=== PATIENT | female | born 1975 | race Caucasian/White ===

== ENCOUNTER 2023-06-03 11:28 | Emergency (ER) | payer OTHER, SELFPAY ==
[2023-06-03 12:00] VITALS: BP 135/93; PULSE 85; RESP 22; TEMP 37; O2SAT 99; BMI 36.9
--- NOTE | 2023-06-03 12:00 | EXP.UTC ---
Discharge Plan Disposition Patient Disposition: Home, Self-Care Condition: Good Prescriptions Prescriptions: New clindamycin HCl 300 mg capsule 300 mg PO Q8H Qty: 30 0RF mupirocin 2 % ointment 1 applic topical TID 7 Days Qty: 15 0RF No Action cyclobenzaprine 10 mg tablet 10 mg PO DAILY dextroamphetamine-amphetamine 10 mg tablet 10 mg PO DAILY Patient Comments: TAKE 1 TABLET BY MOUTH EVERY DAY ROUND MIDDAY NEEDED ergocalciferol (vitamin D2) 1,250 mcg (50,000 unit) capsule 1,250 mcg PO DAILY dextroamphetamine-amphetamine 30 mg capsule,extended release 24hr 30 mg PO DAILY Patient Comments: TAKE 1 CAPSULE BY MOUTH EVERY MORNING escitalopram oxalate 20 mg tablet 20 mg PO DAILY rosuvastatin 20 mg tablet 20 mg PO HS Linzess 72 mcg capsule 72 mcg PO DAILY Referrals Follow up/Referrals: Lavern Lee DO [Primary Care Provider] - See instructions Sheri Apodaca DPM [Staff Physician] - See instructions Activity Restrictions/Add. Instructions Additional Instructions/Restrictions: Rest the extremity, Elevate the extremity as tolerated while you are resting. Take tylenol or ibuprofen for pain. Follow up with Dr. Apodaca (podiatry). I put in a referral but you need to call her office and schedule an appointment. Follow up with your regular doctor. GO TO THE ER FOR ANY WORSENING SYMPTOMS Clinical Impressions Clinical Impression: Cellulitis of fifth toe of right foot Instructions Patient Instructions: Cellulitis, Clindamycin, Mupirocin Discharge ED Provider: Adebayo Georges [facility] General Stated complaint: AO 05/31/23 Right pinky toe home accident Time Seen by Provider: 06/03/23 12:00 History of Present Illness Provider Complaint: She states that 3 days ago she stepped on a piece of glass and got a puncture wound to her right 5th toe. She thought that she got the glass out of the wound, but since then the toe has became red and mildly swollen. She is not a known diabetic. Her tetanus immunization is up to date. Related Data Home Medications Medication Instructions Recorded Confirmed cyclobenzaprine 10 mg tablet 10 mg PO DAILY 06/03/23 06/03/23 dextroamphetamine-amphetamine 10 10 mg PO DAILY 06/03/23 06/03/23 mg tablet dextroamphetamine-amphetamine ER 30 mg PO DAILY 06/03/23 06/03/23 30 mg 24hr capsule,extend release ergocalciferol (vitamin D2) 1,250 1,250 mcg PO DAILY 06/03/23 06/03/23 mcg (50,000 unit) capsule escitalopram oxalate 20 mg tablet 20 mg PO DAILY 06/03/23 06/03/23 linaclotide 72 mcg capsule 72 mcg PO DAILY 06/03/23 06/03/23 (Linzess) rosuvastatin 20 mg tablet 20 mg PO HS 06/03/23 06/03/23 Previous Rx's Medication Instructions Recorded clindamycin HCl 300 mg capsule 300 mg PO Q8H #30 caps 06/03/23 mupirocin 2 % topical ointment 1 applic topical TID 7 days #15 06/03/23 grams Allergies Allergy/AdvReac Type Severity Reaction Status Date / Time atomoxetine Allergy Verified 06/03/23 12:11 cefuroxime Allergy Verified 06/03/23 12:11 codeine Allergy Verified 06/03/23 12:11 estradiol Allergy Verified 06/03/23 12:11 Penicillins Allergy Verified 06/03/23 12:11 Sulfa (Sulfonamide Allergy Verified 06/03/23 12:11 Antibiotics) [facility] Disclaimer: The information contained in this section may have been updated after the patient was seen, as this information can be updated by other users. Medical History (Updated 06/03/23 @ 13:16 by Adebayo Georges APRN) Anxiety History of anemia History of stroke Migraine Surgical History (Updated 06/03/23 @ 12:14 by Joslyn Regalado RN) History of cholecystectomy History of hysterectomy History of tonsillectomy History of tympanostomy tube placement Social History Smoking Status: Never smoker alcohol intake: never current occupational status: employed Travel in the last 8 weeks: None ROS Obtained: Yes All syste
--- NOTE | 2023-06-03 12:09 | XR_ITS ---
PROCEDURE INFORMATION: Exam: XR Right Foot Exam date and time: 06/03/2023 12:24 PM Age: 48 years old Clinical indication: Injury or trauma; Other: Glass in 5th digit; Additional info: Glass in little toe TECHNIQUE: Imaging protocol: Radiologic exam of the right foot. Views: 3 or more views. COMPARISON: No relevant prior studies available. FINDINGS: Bones/joints: Moderate posterior and large plantar calcaneal bone spurs. Soft tissues: No radiopaque foreign body. IMPRESSION: No radiopaque foreign body.
[2023-06-03 13:17] VITALS: BP 135/93; PULSE 85; RESP 22; TEMP 37; O2SAT 99
== END 2023-06-03 13:21 | disposition home or self-care (01) ==
PROVIDERS: Emergency Provider Nurse Practitioner Family; PCP Family Medicine
DX: L03.031 Cellulitis of right toe (principal)
CPT/HCPCS: 73630; 99204; 99212; G0463

== ENCOUNTER 2023-06-24 15:51 | Emergency (ER) | payer OTHER, SELFPAY ==
[2023-06-24 17:30] VITALS: BP 131/98; PULSE 75; RESP 20; TEMP 36.8; O2SAT 99; BMI 34.4
--- NOTE | 2023-06-24 17:45 | EXP.UTC ---
Discharge Plan Disposition Patient Disposition: Home, Self-Care Condition: Good Prescriptions Prescriptions: New fluticasone propionate [Flonase Allergy Relief] 50 mcg/actuation spray,suspension 1 - 2 spray intranasal DAILY Qty: 16 0RF Rx Instructions: administer into each nostril daily azithromycin [Zithromax Z-Luke] 250 mg tablet See Rx Instructions .ROUTE .COMPLEX 5 Days Qty: 6 0RF Rx Instructions: For 250 mg dose pack: take 500 mg today (day 1), then 250 mg for 4 days (days 2-5) methylprednisolone [Medrol (Luke)] 4 mg tablets,dose pack See Rx Instructions .Route .COMPLEX 6 Days Qty: 21 0RF Rx Instructions: taper pack; No Action cyclobenzaprine 10 mg tablet 10 mg PO DAILY dextroamphetamine-amphetamine 10 mg tablet 10 mg PO DAILY Patient Comments: TAKE 1 TABLET BY MOUTH EVERY DAY ROUND MIDDAY NEEDED dextroamphetamine-amphetamine 30 mg capsule,extended release 24hr 30 mg PO DAILY Patient Comments: TAKE 1 CAPSULE BY MOUTH EVERY MORNING escitalopram oxalate 20 mg tablet 20 mg PO DAILY rosuvastatin 20 mg tablet 20 mg PO HS Linzess 72 mcg capsule 72 mcg PO DAILY Referrals Follow up/Referrals: Lavern Lee DO [Primary Care Provider] - See instructions Activity Restrictions/Add. Instructions Additional Instructions/Restrictions: *Monitor Temp, Over the counter Motrin or Tylenol as directed/as needed Tylenol every 4 hours and Motrin every 6 hours (as long as your family doctor has told you that you can take it) for fever or pain. and straight to ER if unable to lower temp less than 101.0 after medication given *Warm salt water gargles may help to soothe the throat *Throat Lozenges? *Warm fluids like tea with honey may help to soothe the throat? *Sleep elevated *Humidifier/Vaporizer *Flonase 2 sprays in each nostril daily but be aware that it may take 2-3 days before you notice improvement Take medication as prescribed Follow up IMMEDIATELY for new or worsening symptoms or no Noticeable improvement over the next 48-72 hours. 911 for difficulty breathing or swallowing Clinical Impressions Clinical Impression: Sinusitis Qualifiers: Sinusitis location: unspecified location Chronicity: unspecified Qualified Code(s): J32.9 - Chronic sinusitis, unspecified Instructions Patient Instructions: Sinusitis, DI for Sinusitis Discharge ED Provider: Enma Gray [facility] [place] General Stated complaint: headache, congestion, sore throat Mode of Arrival: Ambulatory Source of Information: Patient Limitations: No Limitations Time Seen by Provider: 06/24/23 17:46 Description of Symptoms (Recalled from Triage Doc. by RN): PATIENT C/O HEAD CONGESTION, HEADACHE, SINUS DRAINAGE, AND SORE THROAT SINCE MONDAY HEENT Symptoms (Recalled from RN notes): Yes Resp Symptoms (Recalled from RN notes): No Skin Symptoms (Recalled from RN notes): No MS Symptoms (Recalled from RN notes): No Functional Status (Recalled from RN notes): WNL History of Present Illness Provider Complaint: Patient states that for the last 4-5 days she has been having sinus pain and pressure, headache, pressure behind her eyes, in her ears and scratchy throat States feels like it does when she has a bad sinus infection and she usually has to come in and get a zpack and steroids to clear it up Related Data Home Medications Medication Instructions Recorded Confirmed cyclobenzaprine 10 mg tablet 10 mg PO DAILY 06/03/23 06/24/23 dextroamphetamine-amphetamine 10 10 mg PO DAILY 06/03/23 06/24/23 mg tablet dextroamphetamine-amphetamine ER 30 mg PO DAILY 06/03/23 06/24/23 30 mg 24hr capsule,extend release escitalopram oxalate 20 mg tablet 20 mg PO DAILY 06/03/23 06/24/23 linaclotide 72 mcg capsule 72 mcg PO DAILY 06/03/23 06/24/23 (Linzess) rosuvastatin 20 mg tablet 20 mg PO HS 06/03/23 06/24/23 Previous Rx's Medication Instructions Recorded azithromycin 250 mg tablet See Rx Instructions PO .COMPLEX 5 06/24/23 (Zithromax Z-Luke) days #6 tabs fluticasone propionate 50 1 - 2 spray intranasal DAILY #16 06/24/23 mcg/actuation nasal grams spray,suspension (Flonase Allergy Relief) methylprednisolone 4 mg tablets in See Rx Instructions .Route 06/24/23 a dose pack (Medrol (Luke)) .COMPLEX 6 days #21 tabs Allergies Allergy/AdvReac Type Severity Reaction Status Date / Time atomoxetine Allergy Verified 06/03/23 12:11 cefuroxime Allergy Verified 06/03/23 12:11 codeine Allergy Verified 06/03/23 12:11 estradiol Allergy Verified 06/03/23 12:11 oseltamivir Allergy Verified 06/24/23 17:42 Penicillins Allergy Verified 06/03/23 12:11 Sulfa (Sulfonamide Allergy Verified 06/03/23 12:11 Antibiotics) Worker's Comp Is this a Worker's Comp case?: No [facility] Disclaimer: The information contained in this section may have been updated after the patient was seen, as this information can be updated by other users. Medical History (Updated 06/24/23 @ 17:57 by Enma Gray APRN) Anxiety History of anemia History of stroke Migraine Surgical History (Updated 06/03/23 @ 12:14 by Joslyn Regalado RN) History of cholecystectomy History of hysterectomy History of tonsillectomy History of tympanostomy tube placement Social History (Updated 06/03/23 @ 21:20 by Adebayo Georges APRN) Smoking Status: Never smoker alcohol intake: never current occupational status: employed Travel in the last 8 weeks: None ROS Obtained: Yes All systems reviewed & no additional complaints except as documented and Yes Systems reviewed as appropriate & no additional complaints except as documented Constitutional Constitutional: Reports system reviewed and no additional complaints, except as documented and Reports as per HPI ENT Ears, Nose, Mouth, and Throat: Reports system reviewed and no additional complaints, except as documented, Reports as per HPI, Reports otalgia (pressure in ears), Reports sinus pain, Reports sinus pressure and Reports sore throat Cardiovascular Cardiovascular: Reports system reviewed and no additional complaints, except as documented and Reports as per HPI Respiratory Respiratory: Reports system reviewed and no additional complaints, except as documented and Reports as per HPI Gastrointestinal Gastrointestingal: Reports system reviewed and no additional complaints, except as documented and as per HPI Physical Exam General General appearance: alert and in no apparent distress ENT ENT exam: Present mucous membranes moist Expanded ENT Exam TM/Canal exam: Bilateral TM: bulging (clear) Nose exam: Present sinus tenderness Throat exam: Present other (Pharyngeal erythema noted with PND) Chest Chest inspection: Present normal inspection and symmetric chest wall rise Respiratory Respiratory exam: Present normal lung sounds bilaterally; Absent respiratory distress or wheezes Cardiovascular Cardiovascular exam: Present regular rate, normal rhythm and normal heart sounds Abdominal Exam Abdominal exam: Present soft and normal bowel sounds; Absent distention or tenderness Neurological Exam Neurological exam: Present alert, oriented X3 and normal gait Medical Decision Making Ezio Inquiry Pt receiving controlled substance: No Ezio was queried for this patient: No Vital Signs: 06/24/23 17:30 Temperature 98.2 F Temperature Source Oral Pulse Rate [Left Brachial] 75 Respiratory Rate 20 Blood Pressure [Left Arm] 131/98 H Blood Pressure Mean [Left Arm] 109 Blood Pressure Source [Left Arm] Automatic Cuff Blood Pressure Position [Left Arm] Sitting 02 Sat by Pulse Oximetry 99 Oxygen Delivery Method Room Air Medical Decision Narrative: Patient states that she has take azithromycin and Medrol with her current medication without complications or reactions
[2023-06-24 18:00] VITALS: BP 131/98; PULSE 75; RESP 20; TEMP 36.8; O2SAT 99
== END 2023-06-24 18:05 | disposition home or self-care (01) ==
PROVIDERS: Emergency Provider Nurse Practitioner; PCP Family Medicine
DX: J01.90 Acute sinusitis, unspecified (principal); R51.9 Headache, unspecified; R07.0 Pain in throat; R09.81 Nasal congestion; H92.03 Otalgia, bilateral
CPT/HCPCS: 99212; 99214; G0463